=== PATIENT | male | born 1985 | race Caucasian/White ===

== ENCOUNTER 2017-12-28 23:39 | Emergency (ER) | payer OTHER ==
[~2017-12-28] VITALS: Ht 193 cm; Wt 79.4 kg
[~2017-12-28 23:39] MED LIST: ALBU90OI6 INH; AMIT10 PO; AMIT25 PO; AMIT50; AMOX1XR; ASPI81CH; Abilify5 MG PO; Amoxicillin500 MG PO; Cleocin HCl150 MG PO; Cleocin HCl300 MG PO; DIVA500EC PO; DIVA500ER PO; HYDACE5 PO; IBUP800 PO; MIRT15 PO; NAPR500 PO; NAPR550 PO; Norco 5-325 Ta1 EACH PO; PHENO60; PHENO60 PO; PROCODE120 PO; Percocet 5-3251 EACH PO; Prednisone20 MG PO; QUET25 PO; RXNAPNA550 PO; Seroquel50 MG PO; TOPI100 PO; Ultram50 MG PO; Veetids 500500 MG PO; Vistaril50 MG PO; Zofran Odt4 MG SL
[2017-12-29 00:31] LABS: BASOPHILS ABSOLUTE AUTO 0.02 K/mm3 (0.00-0.23); BASOPHILS PERCENT AUTO 0 % (0-2); EOSINOPHILS ABSOLUTE AUTO 0.08 K/mm3 (0.00-0.68); EOSINOPHILS PERCENT AUTO 1 % (0-6); Hemoglobin 14.9 g/dL (13.5-17.5); IMMATURE GRAN ABSOLUTE AUTO 0.01 K/mm3 (0.00-0.10); IMMATURE GRAN PERCENT AUTO 0 % (0-1); LYMPHOCYTES ABSOLUTE AUTO 2.67 K/mm3 (0.84-5.20); LYMPHOCYTES PERCENT AUTO 43 % (21-46); MONOCYTES ABSOLUTE AUTO 0.52 K/mm3 (0.16-1.47); MONOCYTES PERCENT AUTO 8 % (4-13); Mean Corpuscular HGB 30.8 pg (26.0-34.0); Mean Corpuscular HGB Conc 32.4 g/dL (31.5-36.5); Mean Corpuscular Volume 95 fL (80-100); Mean Platelet Volume 10.7 fL (9.1-12.4); NEUTROPHILS ABSOLUTE AUTO 2.89 K/mm3 (1.96-9.15); NEUTROPHILS PERCENT AUTO 47 % (41-73); Platelet Count 212 K/mm3 (150-400); RDW Coefficient Variation 12.9 % (11.7-14.2); RDW Standard Deviation 45.4 fL (35.1-46.3); Red Blood Cell Count 4.84 M/mm3 (4.30-5.90); White Blood Cell Count 6.19 K/mm3 (4.00-11.30)
[2017-12-29 00:39] LABS: Source, Urine Voided
[2017-12-29 00:51] LABS: Bilirubin, Urine Neg (Neg); Blood, Urine Neg (Neg); Glucose Qualitative, Urine Neg (Neg); Ketones, Urine Neg (Neg); Leukocyte Esterase, Urine Neg (Neg); Nitrite, Urine Neg (Neg); Protein, Urine Neg (Neg); Specific Gravity, Urine 1.005 (1.003-1.022); Urobilinogen, Urine NORM (Normal); pH, Urine 6.5 (5.0-8.0)
[2017-12-29 00:52] LABS: Alanine Aminotransfer (ALT/SGP 41 U/L (12-78); Albumin, Blood 3.7 g/dL (3.4-5.0); Albumin/Globulin Ratio 0.9 (0.8-1.8); Alk Phos 53 U/L (50-136); Anion Gap 6 mmol/L (6-16); Aspartate Aminotrans (AST/SGOT 23 U/L (12-37); Bilirubin, Total 0.3 mg/dL (0.1-1.0); Blood Urea Nitrogen 13 mg/dL (8-24); Bun/Creatinine Ratio 16.5 (12.0-20.0); CO2, Blood 28 mmol/L (21-32); Calcium, Blood 8.2 mg/dL (8.5-10.1); Chloride, Blood 105 mmol/L (98-108); Creatinine, Blood 0.79 mg/dL (0.60-1.20); Globulin, Blood 4.1 g/dL (2.2-4.0); Glomerular Filtration Rate >60 (60-); Glucose, Blood 79 mg/dL (70-99); Potassium, Blood 3.8 mmol/L (3.5-5.5); Sodium, Blood 139 mmol/L (136-145); Total Protein, Blood 7.8 g/dL (6.4-8.2)
[2017-12-29 00:56] LABS: Appearance, Urine Clear (Clear); Color, Urine Yellow (P-Yellow)
== END 2017-12-29 02:19 | disposition home or self-care (01) ==
LOC: ER 23:39
PROVIDERS: Physician Assistant
DX: R30.0 Dysuria (principal); R56.9 Unspecified convulsions; Z88.8 Allergy status to other drugs, medicaments and biological substances; Z91.018 Allergy to other foods; Z79.899 Other long term (current) drug therapy; Z87.891 Personal history of nicotine dependence
CPT/HCPCS: 36415; 76770; 76870; 80053; 81000; 81003; 85025; 96374; 99284; J1885

== ENCOUNTER → 2018-09-11 | Outpatient (CLI) | payer OTHER | END | disposition home or self-care (01) | LOC: LAB SHORT 16:24 → LAB EV 16:24 | DX: J02.9 Acute pharyngitis, unspecified (principal) | CPT/HCPCS: 87070 ==

== ENCOUNTER 2019-05-15 01:10 | Emergency (ER) | payer OTHER | END 2019-05-15 02:30 | disposition left against medical advice (07) | LOC: ER 01:10 | DX: Z53.21 Procedure and treatment not carried out due to patient leaving prior to being seen by health care provider (principal); M54.9 Dorsalgia, unspecified ==

== ENCOUNTER 2019-08-16 00:59 | Emergency (ER) | payer OTHER ==
[~2019-08-16] VITALS: Ht 190.5 cm; Wt 83.9 kg
[2019-08-16] MEDS ORDERED: ASPI81CH PO (01:15)
[2019-08-16] MEDS ORDERED: Daily Multiple1 EACH PO (01:15)
[2019-08-16] MEDS ORDERED: HYDPAM25 PO (01:16)
[2019-08-16] MEDS ORDERED: ACET500 PO (01:17)
[2019-08-16] MEDS ORDERED: IBUPROFEN200 MG PO (01:18)
[2019-08-16 01:50] LABS: Calcium, Ionized (POC) 1.17 mmol/L (1.10-1.46); Chloride (POC) 106 mmol/L (98-108); Creatinine (POC) 0.9 mg/dL (0.8-1.3); Glucose (ISTAT POC) 90 mg/dL (70-99); Hemoglobin (POC) 16.3 g/dL (13.5-17.5); Potassium (POC) 3.6 mmol/L (3.5-5.5); Sodium (POC) 140 mmol/L (135-148); Total CO2 (POC) 25 mmol/L (21-32)
[2019-08-16] MEDS ORDERED: BACITRAYCIN PLU28 GM TOP (02:05)
== END 2019-08-16 02:22 | disposition home or self-care (01) ==
LOC: ER 00:59
PROVIDERS: Emergency Medicine
DX: L73.9 Follicular disorder, unspecified (principal); R05 Cough; R11.0 Nausea; J45.909 Unspecified asthma, uncomplicated; F17.200 Nicotine dependence, unspecified, uncomplicated; Z88.8 Allergy status to other drugs, medicaments and biological substances; Z91.018 Allergy to other foods; Z91.048 Other nonmedicinal substance allergy status; Z79.899 Other long term (current) drug therapy; Z79.82 Long term (current) use of aspirin
CPT/HCPCS: 71046; 80047; 85014; 99283-25

== ENCOUNTER → 2021-05-17 | Outpatient (CLI) | payer OTHER ==
[~2021-05-17] MED LIST changes: +ACET500 PO; +ASPI81CH PO; +BACITRAYCIN PLU28 GM TOP; +Daily Multiple1 EACH PO; +HYDPAM25 PO; +IBUPROFEN200 MG PO
== END | disposition home or self-care (01) ==
LOC: LAB 13:15 → LAB SHORT 13:15
DX: J02.9 Acute pharyngitis, unspecified (principal)
CPT/HCPCS: 87081

== ENCOUNTER → 2021-07-31 | Outpatient (CLI) | payer OTHER | LOC: LAB SHORT 19:32 → LAB 19:32 | DX: L02.214 Cutaneous abscess of groin (principal); L08.9 Local infection of the skin and subcutaneous tissue, unspecified; Z91.018 Allergy to other foods; Z91.048 Other nonmedicinal substance allergy status | CPT/HCPCS: 87070; 87075; 87076; 87205 ==

== ENCOUNTER 2021-09-08 10:27 | Emergency (ER) | payer OTHER ==
[~2021-09-08] VITALS: Ht 188 cm; Wt 77.6 kg
[2021-09-08] MEDS ORDERED: PRED20 PO (11:52)
[2021-09-08] MEDS ORDERED: ALBUTEROL1.25 MG/3 INH (11:52)
== END 2021-09-08 12:12 | disposition home or self-care (01) ==
LOC: ER 10:27
DX: R04.0 Epistaxis (principal); J45.901 Unspecified asthma with (acute) exacerbation; G40.909 Epilepsy, unspecified, not intractable, without status epilepticus; Z91.018 Allergy to other foods; Z88.8 Allergy status to other drugs, medicaments and biological substances; Z79.82 Long term (current) use of aspirin; Z79.899 Other long term (current) drug therapy
CPT/HCPCS: 30903; 71045; 94640; 99283-25; A9270; J7512

== ENCOUNTER 2022-04-10 14:18 | Emergency (ER) | payer OTHER ==
[~2022-04-10] VITALS: Ht 193 cm; Wt 86.6 kg
[~2022-04-10 14:18] MED LIST changes: +ALBUTEROL1.25 MG/3 INH; +PRED20 PO
== END 2022-04-10 16:21 | disposition home or self-care (01) ==
LOC: ER 14:18
DX: R20.0 Anesthesia of skin (principal); J45.909 Unspecified asthma, uncomplicated; Z79.899 Other long term (current) drug therapy; Z79.82 Long term (current) use of aspirin; Z88.8 Allergy status to other drugs, medicaments and biological substances; Z91.018 Allergy to other foods; Z87.891 Personal history of nicotine dependence
CPT/HCPCS: 99283

== ENCOUNTER 2023-12-09 18:29 | Emergency (ER) | payer OTHER ==
[~2023-12-09] VITALS: Ht 190.5 cm; Wt 84.8 kg
[2023-12-09 18:56] VITALS: BP 117/87
== END 2023-12-09 21:10 | disposition home or self-care (01) ==
LOC: ER 18:29
DX: M25.532 Pain in left wrist (principal); W01.0XXA Fall on same level from slipping, tripping and stumbling without subsequent striking against object, initial encounter; J45.909 Unspecified asthma, uncomplicated; G40.909 Epilepsy, unspecified, not intractable, without status epilepticus; Z87.891 Personal history of nicotine dependence; Z88.8 Allergy status to other drugs, medicaments and biological substances; Z91.018 Allergy to other foods; Z79.899 Other long term (current) drug therapy; Z79.82 Long term (current) use of aspirin
CPT/HCPCS: 73110; 99283-25

== ENCOUNTER 2024-04-26 14:51 | Emergency (ER) | payer OTHER ==
[~2024-04-26] VITALS: Ht 188 cm; Wt 90.7 kg
[2024-04-26] MEDS ORDERED: Hydroxyzine HCl50 MG (15:23)
[2024-04-26] MEDS ORDERED: ARIPIPRAZOLE30 MG PO (15:23)
[2024-04-26] MEDS ORDERED: DEPAKOTE ER500 M2 PO (15:24)
[2024-04-26] MEDS ORDERED: PHENO60 PO (15:25)
[2024-04-26 15:38] LABS: BASOPHILS ABSOLUTE AUTO 0.02 K/mm3 (0.00-0.23); BASOPHILS PERCENT AUTO 0 % (0-2); EOSINOPHILS ABSOLUTE AUTO 0.04 K/mm3 (0.00-0.68); EOSINOPHILS PERCENT AUTO 1 % (0-6); Hematocrit 49.3 % (37.0-53.0); Hemoglobin 16.4 g/dL (13.5-17.5); IMMATURE GRAN ABSOLUTE AUTO 0.01 K/mm3 (0.00-0.10); IMMATURE GRAN PERCENT AUTO 0 % (0-1); LYMPHOCYTES ABSOLUTE AUTO 1.44 K/mm3 (0.84-5.20); LYMPHOCYTES PERCENT AUTO 29 % (21-46); MONOCYTES PERCENT AUTO 6 % (4-13); Mean Corpuscular HGB 31.8 pg (26.0-34.0); Mean Corpuscular HGB Conc 33.3 g/dL (31.5-36.5); Mean Corpuscular Volume 96 fL (80-100); Mean Platelet Volume 10.4 fL (9.1-12.4); NEUTROPHILS ABSOLUTE AUTO 3.18 K/mm3 (1.96-9.15); NEUTROPHILS PERCENT AUTO 64 % (41-73); Platelet Count 237 K/mm3 (150-400); RDW Coefficient Variation 13.3 % (11.7-14.2); RDW Standard Deviation 47.2 fL (35.1-46.3); Red Blood Cell Count 5.16 M/mm3 (4.30-5.90); White Blood Cell Count 4.99 K/mm3 (4.00-11.30)
[2024-04-26 15:59] LABS: Ethanol (Alcohol), Blood, Med <3 mg/dL; Salicylate <1.7 mg/dL (2.8-20.0)
[2024-04-26 16:02] LABS: Alanine Aminotransfer (ALT/SGP 28 U/L (12-78); Albumin/Globulin Ratio 1.1 (0.8-1.8); Alk Phos 43 U/L (50-136); Anion Gap 10 mmol/L (3-11); Aspartate Aminotrans (AST/SGOT 19 U/L (12-37); Bilirubin, Total 0.4 mg/dL (0.1-1.0); Blood Urea Nitrogen 15 mg/dL (8-24); Bun/Creatinine Ratio 15.4 (12.0-20.0); CO2, Blood 28 mmol/L (21-32); Calcium, Blood 8.7 mg/dL (8.5-10.1); Chloride, Blood 109 mmol/L (98-108); Creatinine, Blood 0.97 mg/dL (0.60-1.20); Globulin, Blood 3.7 g/dL (2.2-4.0); Glomerular Filtration Rate 101 (60-); Glucose, Blood 97 mg/dL (70-99); Sodium, Blood 143 mmol/L (136-145); Total Protein, Blood 7.7 g/dL (6.4-8.2)
[2024-04-26 16:12] LABS: Acetaminophen, Random <2.0 ug/mL (10.0-30.0)
[2024-04-26 19:20] LABS: Source, Urine Clean Catch
[2024-04-26 19:23] LABS: Appearance, Urine Cloudy (Clear); Bilirubin, Urine Neg (Neg); Blood, Urine Neg (Neg); Color, Urine Yellow (P-Yellow); Glucose Qualitative, Urine Neg (Neg); Ketones, Urine 2+ (Neg); Leukocyte Esterase, Urine Neg (Neg); Nitrite, Urine Neg (Neg); Protein, Urine Neg (Neg); Urobilinogen, Urine NORM (Normal)
[2024-04-26 19:31] LABS: Amorphous Light (0-Heavy); Bacteria Rare /hpf; Red Blood Cells, Urine 0-2 /hpf (0-2); Squamous Epithelial Cells Not Seen /hpf (Few); White Blood Cells, Urine 0-2 /hpf (0-5)
[2024-04-26] MEDS ORDERED: DOXYCYCLINE HY100 M1 PO (19:36)
[2024-04-26 19:41] LABS: U Amphetamine Screen Not Detected; U Barbituate Screen DETECTED; U Benzodiazapine Screen Not Detected; U Buprenorphine Screen Not Detected; U Cannabinoids Screen Not Detected; U Cocaine Screen Not Detected; U Methadone Screen Not Detected; U Methamphetamine Screen Not Detected; U Opiates Screen Not Detected; U Oxycodone Screen Not Detected; U Phencyclidine Screen Not Detected
[2024-04-26] MEDS ORDERED: Topiramate 100 MG Tab PO SCH (21:00)
[2024-04-26] MEDS ORDERED: Divalproex Sodium 500 MG TABCR PO SCH (21:00)
[2024-04-26] MEDS ORDERED: HyDROXyzine HCl 25 MG Tab PO SCH (21:00)
[2024-04-26] MEDS ORDERED: Doxycycline Hyclate 100 MG TAB PO SCH (21:00)
[2024-04-26] MEDS ORDERED: ARIPiprazole 10 MG Tab PO SCH (21:00)
[2024-04-26] MEDS ORDERED: PHENobarbital 64.8 MG Tab PO SCH (21:00)
[2024-04-27] MEDS ORDERED: Topiramate 100 MG Tab PO SCH (06:00)
[2024-04-27 08:47] VITALS: BP 109/82
[2024-04-27] MEDS ORDERED: PHENO60 PO (16:04)
== END 2024-04-27 08:49 | disposition other institution (70) ==
LOC: ER 14:51
PROVIDERS: Physician Assistant; Student in an Organized Health Care Education/Training Program
DX: R45.851 Suicidal ideations (principal); F31.9 Bipolar disorder, unspecified; G40.909 Epilepsy, unspecified, not intractable, without status epilepticus; J45.909 Unspecified asthma, uncomplicated; Z91.018 Allergy to other foods; Z91.048 Other nonmedicinal substance allergy status; Z79.899 Other long term (current) drug therapy; Z87.891 Personal history of nicotine dependence
CPT/HCPCS: 80053; 80184; 81001; 85025; 99285; A9270; G0480

== ENCOUNTER 2024-04-26 18:53 | Inpatient (IN) | payer OTHER ==
[~2024-04-26 18:53] MED LIST changes: +ARIPIPRAZOLE30 MG PO; +DEPAKOTE ER500 M2 PO; +Hydroxyzine HCl50 MG
[2024-04-26] MEDS ORDERED: DOXYCYCLINE HY100 M1 PO (19:36)
--- NOTE | 2024-04-26 20:12 | NUR ---
pt transfer via wheelchair to medical floor rm [id number]. warm hand off to nurse jolly
[2024-04-26] MEDS ORDERED: Haloperidol 5 MG Tab PO PRN (22:10)
[2024-04-26] MEDS ORDERED: LORazepam 2 MG Tab PO PRN (22:10)
[2024-04-26] MEDS ORDERED: DiphenhydrAMINE HCl 50 MG Cap PO PRN (22:10)
[2024-04-26] MEDS ORDERED: OLANZapine 10 MG Vial IM PRN (22:10)
--- NOTE | 2024-04-27 08:55 | NUR ---
PT ADMIT PT ARRIVED VIA [facility] TRANSPORT CALL TO HOSPITALIST CONSULT DR. GOMES FOR PHENOBARBITAL AND ABX RX.
[2024-04-27] MEDS ORDERED: Divalproex Sodium 250 MG TABLET.DR PO SCH (09:00)
[2024-04-27 09:41] VITALS: BP 111/84
--- NOTE | 2024-04-27 11:44 | NUR ---
MEDICATION CLAIRIFICATION PT REPORTS TAKING 1000MG OF DEPAKOTE AT [address] RAMÍREZ CURRENT ORDERS FOR 250MG q12 @0900/2100
[2024-04-27] MEDS ORDERED: HyDROXyzine HCl 25 MG Tab PO PRN (12:00)
--- NOTE | 2024-04-27 13:50 | NUR ---
EKG COMPLETE EKG COMPLETED ORDERED, CALL TO DR RAMÍREZ TO INFORM OF COMPLETION.
[2024-04-27] MEDS ORDERED: PHENO60 PO (16:04)
[2024-04-27] MEDS ORDERED: Albuterol 2.5 MG/3 ML VIAL INH PRN (16:15)
[2024-04-27] MEDS ORDERED: Acetaminophen 500 MG Tab PO PRN (17:00)
[2024-04-27] MEDS ORDERED: PHENobarbital 64.8 MG Tab PO SCH (21:00)
[2024-04-27] MEDS ORDERED: Doxycycline Hyclate 100 MG TAB PO SCH (21:00)
[2024-04-27] MEDS ORDERED: Divalproex Sodium 500 MG TABCR PO SCH (21:00)
[2024-04-27 22:36] VITALS: BP 103/81
--- NOTE | 2024-04-28 01:35 | NUR ---
Patient unable to sleep one hour after HS medications given. OOB asking for something elso to help him sleep. 50mg of PRN Vistaril given per order. Currently in TV room still unable to sleep. Watching movie with [facility]. Will continue close monitoring and encouraging patient to try to sleep. Mood good pleasant. Explained there is a scoring system for any further medications tonight.
--- NOTE | 2024-04-28 04:56 | NUR ---
Patient had very poor sleep overnight. Did sleep for about 2 hours between 2-4 AM. He is also suffering from a strong dry cough that woke him from sleep this morning. Patient is pleasant and cooperative with care. Very conversant with staff. Currently OOB reading a book in the sensory room. No SI,HI,AH/VH. will continue close monitoring.
[2024-04-28 08:27] VITALS: BP 108/80
[2024-04-28] MEDS ORDERED: Topiramate 100 MG Tab PO SCH (09:00)
[2024-04-28] MEDS ORDERED: PHENobarbital 64.8 MG Tab PO SCH (09:00)
[2024-04-28] MEDS ORDERED: ARIPiprazole 10 MG Tab PO SCH (09:00)
--- NOTE | 2024-04-28 16:10 | NUR ---
Due to pt advising SW on 04/27/24 that he would like to live in an Adult Living Home, SW attempted to contact [facility] for possible availability (i.e. [facility] and [facility]). All [facility] that SW contacted advised that no placement was currently available and would not be able to advise of a tat of when space would be. At 0950 SW contacted pt insurance [employer] in order to review if transportation could be utilized for when pt discharges [facility]. Due to other concerns, SW was not able to gather transportation question from insurance. SW met with pt approximately 1030am. Pt advised that in the event his insurance is not able to provide transportation assistance, he will attempt to contact his brother in law.
--- NOTE | 2024-04-28 17:42 | NUR ---
SHIFT SUMMARY PT AxOx4. PLEASANT AND COOPERATIVE WITH CARE. PT HAS PARTICIPATED IN GROUPS TODAY, ENGAGED WITH PEERS, AND MINGLED APPROPRIATELY. PT REPORTED DIARRHEA THIS AM, WHICH DID RESOLVE BY THE EVENING. PT REPORTED HAVING SUICIDAL THOUGHTS T/O THIS SHIFT, BUT DENIES INTENT AND PLANS AT THIS TIME. DENIES AVD THIS SHIFT. MEDS CHANGED BY PROVIDER TO BE STARTED THIS EVENING. PT IS CURRENTLY STANDING IN HALLS CHATTING WITH FELLOW PATIENT. HE APPEARS RELAXED AND IS SMILING. HE DENIED ANY NEEDS WHEN ASKED. EXPECTED DISCHARGE EITHER TO RETIREMENT OR ADULT FOSTER HOME.
[2024-04-28 20:11] VITALS: BP 134/89
[2024-04-28] MEDS ORDERED: LamoTRIgine 25 MG Tab PO SCH (21:00)
[2024-04-28] MEDS ORDERED: OLANZapine 5 MG Tab PO ONE (21:55)
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
--- NOTE | 2024-04-28 23:35 | NUR ---
EKG completed on 04/27. will ask day RN to check with Dr. Ji to see if 2nd one is needed.
--- NOTE | 2024-04-29 01:29 | NUR ---
Patient continues to be unable to sleep. Call placed to MD to inform. No new orders at this time. Continue to monitor until AM per Dr. Rios.
--- NOTE | 2024-04-29 04:47 | NUR ---
Patient is A&OX4, very pleasant and cooperative with care. OOB wandering halls until approximately 0415 when this RN finally convinced him to go to bed and try to sleep. Patient check at 0435 revealed he had fallen asleep. Patient stated no SI, HI, AH or VH. Mood was Elevated throughout the evening and senior pastor hours and he was unable to sit or stand still. Will continue close monitoring
[2024-04-29 08:39] VITALS: BP 114/76
--- NOTE | 2024-04-29 09:45 | NUR ---
PT DENIES SI, HI, A/V HALLUCINATIONS. CALM, COOPERATIVE, SOCIAL SEEN ON UNIT EATING BREAKFAST WIHT PEERS. ATTENDING GROUP, PARTICIPATING IN GAMES, HAVING CONVERSATION WITH STAFF. NO ISSUES AT THIS TIME.
--- NOTE | 2024-04-29 12:07 | NUR ---
TESSY contacted Roxann (i.e. sister of pt) in order to confirm if pt was allowed to live with family again, due to pt advising in his intake with SW that he was kicked out of his home, however, also advising that he spoke with his family 04/28/24 and that they his family stated he was allowed to come back. Tessy spoke with Roxann from 11:55am-12:23pm. Roxann confirmed that pt is allowed to live to live at home, everyone wants him home, and that she will be able to assist in his transportation for discharge on 04/30/24. Roxann stated that she can be available at 1pm for pickup.
[2024-04-29 12:57] LABS: Albumin, Blood 4.2 g/dL (3.4-5.0); Bilirubin, Direct 0.1 mg/dL (0.0-0.3); Bilirubin, Indirect 0.4 mg/dL (0.1-0.7); Bilirubin, Total 0.5 mg/dL (0.1-1.0); Bun/Creatinine Ratio 15.3 (12.0-20.0); Calcium, Blood 9.5 mg/dL (8.5-10.1); Creatinine, Blood 0.85 mg/dL (0.60-1.20); Phosphorus, Blood 2.3 mg/dL (2.5-4.9); Potassium, Blood 4.2 mmol/L (3.5-5.5); Total Protein, Blood 8.2 g/dL (6.4-8.2)
[2024-04-29 12:58] LABS: Valproic Acid 60.6 ug/mL (50.0-100.0)
[2024-04-29] MEDS ORDERED: Melatonin 3 MG Tab PO PRN (14:10)
--- NOTE | 2024-04-29 14:44 | NUR ---
Pt calm, cooperative, seen on unit socializing with amaris using positive coping skills, eating snack and playing games with peers. Pt has mild flat affect. Pt is medication compliant, meds are well tolerated. Pt resting in bed, 3x rise and fall of chest observed. NO issues at this time.
--- NOTE | 2024-04-29 14:51 | NUR ---
Pt resting in bed 3x rise and fall of chest observed. No issues at this time.
[2024-04-29] MEDS ORDERED: Tamsulosin HCl 0.4 MG Cap PO SCH (15:00)
[2024-04-29] MEDS ORDERED: Potassium Phos/Sodium Phos 250 MG PACK PO ONE (15:40)
--- NOTE | 2024-04-29 16:51 | NUR ---
PT CALM, COOPERATIVE, SOCIALIZING WITH STAFF AND CATHIE PLAYING GAMES, EATING SNACK, PARTICIPATING IN GROUP. NO ISSUES AT THIS TIME.
--- NOTE | 2024-04-29 16:57 | NUR ---
PT CALM, COOPERATIVE, MEDICATION COMPLIANT, MEDICATIONS WELL TOLERATED. NEW MEDICATOIN FIRST DOSE ADMINISTERED.
[2024-04-29] MEDS ORDERED: Melatonin 5 MG Tablet PO SCH (18:00)
[2024-04-29 20:29] VITALS: BP 103/77; BP 131/89
[2024-04-29] MEDS ORDERED: OLANZapine 5 MG Tab PO SCH (21:00)
[2024-04-29] MEDS ORDERED: TraZODone HCl 50 MG Tab PO SCH (21:00)
--- NOTE | 2024-04-30 03:12 | NUR ---
Patient to bed at 2400 then back up at 0130 with c/omild generalized aches and insomnia. Gave tylenol and PRN 3mg melatonin and chamomile tea. He woke again at 0300 complaiining that his arms were moving in his sleep and wanted to know "what that is". Large cup tea given again, and patient agreed to try again to go to sleep. will continue close monitoring.
--- NOTE | 2024-04-30 03:22 | NUR ---
PATIENT C/O NIGHT TERRORS THE REASON HE THINKS HE CANNOT GO TO OR STAY ASLEEP.
--- NOTE | 2024-04-30 05:03 | NUR ---
Patient again got very little overall sleep last night. He was up hourly after going to bed at 0030. Each time with vague complaints of generalized discomfort or arms and shoulders "flapping" (much like a bird). Both Scheduled dose of melatonin at HS as well as PRN dose were given without much response until around 0400 when patient finally fell asleep. PATIENT DISCUSSED A LONG HISTORY OF FREQUENT NIGHTMARES WHICH HAVE MADE IT DIFFICULT FOR HIM TO SLEEP FOR SEVERAL YEARS. HE WAS ENCOURAGED TO SPEAK WITH MD ABOUT THIS IN THE MORNING. Denied SI,HI, AH or VH to this RN.
--- NOTE | 2024-04-30 08:29 | NUR ---
Pt resting in bed, 3x rise and fall of chest observed. No issues at this time.
[2024-04-30 09:40] VITALS: BP 114/81
[2024-04-30 10:12] LABS: Albumin, Blood 3.6 g/dL (3.4-5.0); Anion Gap 8 mmol/L (3-11); Blood Urea Nitrogen 13 mg/dL (8-24); Bun/Creatinine Ratio 15.5 (12.0-20.0); CO2, Blood 30 mmol/L (21-32); Calcium, Blood 9.4 mg/dL (8.5-10.1); Chloride, Blood 109 mmol/L (98-108); Creatinine, Blood 0.84 mg/dL (0.60-1.20); Glomerular Filtration Rate 113 (60-); Glucose, Blood 96 mg/dL (70-99); Potassium, Blood 4.7 mmol/L (3.5-5.5); Sodium, Blood 142 mmol/L (136-145)
[2024-04-30] MEDS ORDERED: Ventolin5 MG/1 ML INH (11:28)
[2024-04-30] MEDS ORDERED: LAMO25 PO (11:30)
[2024-04-30] MEDS ORDERED: MELATONIN5 M1 PO (11:30)
[2024-04-30] MEDS ORDERED: OLAN5 PO (11:31)
[2024-04-30] MEDS ORDERED: TAMS.4ER PO (11:34)
--- NOTE | 2024-04-30 13:06 | NUR ---
PT SIGNED OFF ON BELONGINGS: DRESSED,WALKED OUT WITH RN TO HIS RIDE THAT WAS HERE TO PICK HIM UP: PT WAS IN GOOD SPIRITS
== END 2024-04-30 12:53 | disposition home or self-care (01) | DRG 885 ==
LOC: BHU 18:53
PROVIDERS: Internal Medicine; ADMIT Student in an Organized Health Care Education/Training Program
DX: F31.77 Bipolar disorder, in partial remission, most recent episode mixed (principal); R45.851 Suicidal ideations; Z59.00 Homelessness unspecified; E83.39 Other disorders of phosphorus metabolism; N20.0 Calculus of kidney; G40.909 Epilepsy, unspecified, not intractable, without status epilepticus; L73.0 Acne keloid; J45.909 Unspecified asthma, uncomplicated; Z56.0 Unemployment, unspecified; F41.9 Anxiety disorder, unspecified
CPT/HCPCS: 36415; 80053; 80069; 80164; 82140; 82248; 84100; 93005; 93010; A9270

== ENCOUNTER 2024-05-12 17:35 | Observation (INO) | payer OTHER ==
[~2024-05-12] VITALS: Ht 190.5 cm; Wt 77.1 kg
[~2024-05-12 17:35] MED LIST changes: +DOXYCYCLINE HY100 M1 PO; +LAMO25 PO; +MELATONIN5 M1 PO; +OLAN5 PO; +TAMS.4ER PO; +Ventolin5 MG/1 ML INH
[2024-05-12 18:15] LABS: BASOPHILS ABSOLUTE AUTO 0.01 K/mm3 (0.00-0.23); BASOPHILS PERCENT AUTO 0 % (0-2); EOSINOPHILS PERCENT AUTO 0 % (0-6); Hematocrit 46.7 % (37.0-53.0); Hemoglobin 15.1 g/dL (13.5-17.5); IMMATURE GRAN ABSOLUTE AUTO 0.01 K/mm3 (0.00-0.10); IMMATURE GRAN PERCENT AUTO 0 % (0-1); LYMPHOCYTES ABSOLUTE AUTO 0.77 K/mm3 (0.84-5.20); LYMPHOCYTES PERCENT AUTO 16 % (21-46); MONOCYTES PERCENT AUTO 4 % (4-13); Mean Corpuscular HGB 31.6 pg (26.0-34.0); Mean Corpuscular HGB Conc 32.3 g/dL (31.5-36.5); Mean Corpuscular Volume 98 fL (80-100); Mean Platelet Volume 10.8 fL (9.1-12.4); NEUTROPHILS ABSOLUTE AUTO 3.78 K/mm3 (1.96-9.15); NEUTROPHILS PERCENT AUTO 79 % (41-73); Platelet Count 213 K/mm3 (150-400); RDW Standard Deviation 47.3 fL (35.1-46.3); Red Blood Cell Count 4.78 M/mm3 (4.30-5.90); White Blood Cell Count 4.77 K/mm3 (4.00-11.30)
[2024-05-12 18:32] LABS: Ethanol (Alcohol), Blood, Med <3 mg/dL; Salicylate <1.7 mg/dL (2.8-20.0)
[2024-05-12 18:33] LABS: Acetaminophen, Random <2.0 ug/mL (10.0-30.0); Alanine Aminotransfer (ALT/SGP 21 U/L (12-78); Albumin, Blood 3.6 g/dL (3.4-5.0); Albumin/Globulin Ratio 1.1 (0.8-1.8); Alk Phos 39 U/L (50-136); Anion Gap 20 mmol/L (3-11); Aspartate Aminotrans (AST/SGOT 18 U/L (12-37); Bilirubin, Total 0.5 mg/dL (0.1-1.0); Blood Urea Nitrogen 17 mg/dL (8-24); Bun/Creatinine Ratio 14.2 (12.0-20.0); CO2, Blood 15 mmol/L (21-32); Calcium, Blood 8.3 mg/dL (8.5-10.1); Chloride, Blood 105 mmol/L (98-108); Globulin, Blood 3.4 g/dL (2.2-4.0); Glomerular Filtration Rate 78 (60-); Glucose, Blood 248 mg/dL (70-99); Potassium, Blood 3.6 mmol/L (3.5-5.5); Sodium, Blood 136 mmol/L (136-145)
[2024-05-12] MEDS ORDERED: Acetaminophen 500 MG Tab PO ONE (20:20)
[2024-05-12 20:40] LABS: Source, Urine Clean Catch
[2024-05-12 20:51] LABS: Appearance, Urine Hazy (Clear); Bilirubin, Urine Neg (Neg); Blood, Urine 1+ (Neg); Color, Urine Yellow (P-Yellow); Glucose Qualitative, Urine 2+ (Neg); Ketones, Urine 2+ (Neg); Leukocyte Esterase, Urine Neg (Neg); Nitrite, Urine Neg (Neg); Protein, Urine 2+ (Neg); Specific Gravity, Urine 1.025 (1.003-1.022); Urobilinogen, Urine NORM (Normal)
[2024-05-12] MEDS ORDERED: OLANZapine 5 MG Tab PO SCH (21:00)
[2024-05-12] MEDS ORDERED: PHENobarbital 64.8 MG Tab PO SCH (21:00)
[2024-05-12] MEDS ORDERED: Divalproex Sodium 500 MG TABCR PO SCH (21:00)
[2024-05-12] MEDS ORDERED: Melatonin 5 MG Tablet PO SCH (21:00)
[2024-05-12] MEDS ORDERED: LamoTRIgine 25 MG Tab PO SCH (21:00)
[2024-05-12 21:04] LABS: Bacteria Few /hpf; Granular Casts 0-2 /lpf (0); Red Blood Cells, Urine 0-2 /hpf (0-2); Squamous Epithelial Cells Few /hpf (Few); White Blood Cells, Urine 0-2 /hpf (0-5)
[2024-05-12 21:27] LABS: U Amphetamine Screen Not Detected; U Barbituate Screen DETECTED; U Benzodiazapine Screen Not Detected; U Buprenorphine Screen Not Detected; U Cannabinoids Screen Not Detected; U Cocaine Screen Not Detected; U Methadone Screen Not Detected; U Methamphetamine Screen Not Detected; U Opiates Screen Not Detected; U Oxycodone Screen Not Detected; U Phencyclidine Screen Not Detected
[2024-05-13 16:24] VITALS: BP 105/66
[2024-05-13] MEDS ORDERED: LORazepam 2 MG Tab PO PRN (17:00)
[2024-05-13] MEDS ORDERED: Venlafaxine HCl 25 MG Tab PO SCH (21:00)
[2024-05-13] MEDS ORDERED: HydrOXYzine Pamoate 50 MG Cap PO SCH (21:00)
[2024-05-14] MEDS ORDERED: PHENobarbital 64.8 MG Tab PO SCH (09:00)
== END 2024-05-13 21:52 | disposition other institution (70) ==
LOC: ER 17:35 → EOR 17:36
PROVIDERS: Physician Assistant; ADMIT Emergency Medicine
DX: F31.81 Bipolar II disorder (principal); R45.851 Suicidal ideations; G40.909 Epilepsy, unspecified, not intractable, without status epilepticus; J45.909 Unspecified asthma, uncomplicated; F41.9 Anxiety disorder, unspecified; Z87.891 Personal history of nicotine dependence; Z88.8 Allergy status to other drugs, medicaments and biological substances; Z91.011 Allergy to milk products; Z91.018 Allergy to other foods
CPT/HCPCS: 36415; 80053; 81001; 85025; 93005; 93010; 99285-25; A9270; G0378; G0480

== ENCOUNTER 2024-05-13 18:35 | Inpatient (IN) | payer OTHER ==
[~2024-05-13] VITALS: Wt 76.7 kg
[2024-05-13] MEDS ORDERED: QUEtiapine Fumarate 25 MG Tab PO PRN ×2 (19:05→19:45)
[2024-05-13] MEDS ORDERED: LORazepam 2 MG Tab PO PRN ×2 (19:05→19:45)
[2024-05-13 21:37] VITALS: BP 99/73
--- NOTE | 2024-05-14 01:03 | NUR ---
NEW ADMIT: Kierra IS ADMITTED TODAY HE WAS FEELING SI. APPARENTLY KIERRA LIVES WITH HIS PARENTS AND OTHER FAMILY MEMBERS. HE TELLS ME THEY CAUSED HIM TO BECOME QUITE ANXIOUS, DEPRESSED AND AGITATED. HE FELT VERY SUICIAL WITH A PLAN, SO PRECEEDED TO WALK TO THE ER FOR TREATMENT. KIERRA IS WELL KNOWN TO OUR STAFF. HE WAS COMPLIANT WITH CARE AND MEDICATIONS. HE DENIES ANY PAIN OR DISCOMFORTS. hE IS VERY CHATTY WITH STAFF AND OTHER PATIENTS. HE DID AGREE TO GO TO BED AND TRY AND SLEEP AROUND MIDNIGHT. PATIENT ACTIVELY SLEEPING AROUND 1230. NO NOTED BEHAVIORS
--- NOTE | 2024-05-14 05:39 | NUR ---
PATIENT SLEPT WELL THROUGHOUT THE NIGHT AFTER PRN ATIVAN WAS GIVEN FOR MODERATE ANXIETY AND RESTLESSNESS. HE HAD NO NOTED BEHAVIORS OR ISSUES
[2024-05-14 08:29] VITALS: BP 107/72
--- NOTE | 2024-05-14 09:48 | NUR ---
Tessy attempted to contact Asael Jimenez at regarding ACT services. Tessy left a vm at 0817 approximately.
--- NOTE | 2024-05-14 09:51 | NUR ---
DISCHARGE SERVICS::::::::::::::::::::::::::::::: Tessy spoke with Adrienne (i.e. [employer] worker) in order to schedule therapy services. Pt will meet with Justin Harrison at 1100 on 04/20/2024. Tessy received a callback from Katelin with [facility]. Katelin scheduled pt for meds with [facility] on 04/19/2024 at 1400pm
[2024-05-14] MEDS ORDERED: Albuterol 2.5 MG/3 ML VIAL INH PRN (10:05)
--- NOTE | 2024-05-14 10:06 | NUR ---
PT ATE BREAKFAST, GIVEN EXTRA COFFEE PER REQUEST. PT COOPERATIVE AND ENGAGING WITH STAFF AND OTHER PT. PT SMILING AND LAUGHING AT TIMES, REPEAT CBG REQUESTED BY DR. GAMBOA AND DR. CALIX, PT HAD A PREVIOUS RECORDED CBG OF 248, THIS WAS DONE AND 114, REPORTED TO PROVIDERS. PT MET WITH SUPPLY AIDE AND AGREES TO KEEP A WORRY JOURNAL, HE IS GOING TO RECORD THE WORRY AND WORK ON TURNING THIS INTO A POSITIVE THOUGHT USING HANDOUTS PROVIDED. PT IS GIVEN SAFETY PEN FOR THIS ACTIVITY. DENIES ANY FURTHER NEEDS AT THIS TIME.
--- NOTE | 2024-05-14 16:13 | NUR ---
Bhupinder attempted to contact Roxann (i.e. sister) at 1613pm in order to schedule a family meeting with pt, Roxann and bhupinder. Bhupinder will attempt to call Roxann at another time.
--- NOTE | 2024-05-14 16:29 | NUR ---
PT REPORTS HE IS STILL FEELING SUICIDAL, EARLIER PT REPORTED NO PLAN, THIS CHANGED THIS AFTERNOON PT WAS LOOKING FOR A PLACE TO MAKE LIGATURE AND HANG HIMSELF, INCREASED OBSERVATION TO 1:1 AT THIS TIME, PACKER OPERATOR AUTOMATIC NOTIFYING PROVIDER
[2024-05-14 19:52] VITALS: BP 120/80
[2024-05-14] MEDS ORDERED: Melatonin 5 MG Tablet PO SCH (21:00)
[2024-05-14] MEDS ORDERED: Divalproex Sodium 500 MG TABCR PO SCH (21:00)
[2024-05-14] MEDS ORDERED: PHENobarbital 64.8 MG Tab PO SCH (21:00)
[2024-05-14] MEDS ORDERED: OLANZapine 5 MG Tab PO SCH (21:00)
[2024-05-14] MEDS ORDERED: LamoTRIgine 25 MG Tab PO SCH (21:00)
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
--- NOTE | 2024-05-15 06:11 | NUR ---
PATIENT HAD A RESTFUL NIGHT, NO NOTED ISSUES OR BEHAVIORS. HE REMAINS ON A 1:1 FOR SI SAFETY.
[2024-05-15 08:31] VITALS: BP 103/75
[2024-05-15] MEDS ORDERED: Topiramate 100 MG Tab PO SCH (09:00)
[2024-05-15] MEDS ORDERED: PHENobarbital 64.8 MG Tab PO SCH (09:00)
[2024-05-15] MEDS ORDERED: Tamsulosin HCl 0.4 MG Cap PO SCH (09:00)
--- NOTE | 2024-05-15 10:08 | NUR ---
PT AWAKE AT 0752, INDEPENDENTLY WENT TO GET BREAKFAST WITHOUT MUCH ENCOURAGEMENT. PT DOES ENDORSE CONTINUED SUICIDAL THOUGHTS, BUT DOESN'T SHARE ANY SPECIFIC PLAN OR INTENT. PT MOSTLY AVOIDING EYE CONTACT THIS MORNING, SAD AFFECT AND NOT SMILING. PT HAS WORKED ON A PUZZLE WITH [facility] FOR MOST OF THE MORNING, WILL CONTINUE 1:1 MONITORING AT THIS TIME.
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
--- NOTE | 2024-05-15 16:48 | NUR ---
HAVE MAINTAINED 1:1 OBSERVATION, PT HAS BEEN ENGAGED IN CONVERSATION, PT SMILING AND JOKING, HAS TO BE REMINDED TO KEEP JOKES APPROPRIATE TO THE UNIT AND SITUATION. PT HAS TOLD THE [facility] THAT TOMORROW HE WILL NOT BE TALKING TO ANYONE. THIS AFTERNOON PT IS NO LONGER REPORTING ANY SI, PT STATES LAST SUICIDAL THOUGHT WAS LAST NIGHT, DESPITE ENDORSING SI EARLIER TODAY WELL.
[2024-05-15 19:52] VITALS: BP 104/72
[2024-05-15] MEDS ORDERED: OLANZapine 5 MG Tab PO SCH (21:00)
[2024-05-16 11:47] VITALS: BP 100/70
--- NOTE | 2024-05-16 11:50 | NUR ---
PT HAS BEEN SLEEPING ALL MORNING OFF AND ON, PT NOT SPEAKING HE WILL NOD YES OR SHAKE HIS HEAD NO, AND SHRUG SHOULDERS TO ANSWER YES/NO QUESTIONS. PT HAS BEEN OFFERED BREAKFAST AND LUNCH AND HE HAS REFUSED. HAVE OFFERED AM MEDICATIONS, PT SHAKES HIS HEAD NO AND DOES NOT WANT TO TAKE THEM, DISCUSSED RISKS OF NOT TAKING ANTISEIZURE MEDICATIONS AND PT SHRUGS. DISCUSSED WITH PT THE OPTION TO PASS WRITTEN NOTES SINCE HE HAS CHOSEN TO BE SILENT TODAY TO RESPECT THE LOSS OF HIS SO, PT NODS YES, INDICATING UNDERSTANDING.
--- NOTE | 2024-05-16 13:38 | NUR ---
AGAIN OFFERED MEDICAIONS, PT PASSES A NOTE TO THIS NURSE STATING FOR TODAY HE IS NOT TAKING ANY FOOD/FLUIDS OR MEDICATIONS TODAY TO REMEMBER HIS SO THAT .
--- NOTE | 2024-05-16 17:41 | NUR ---
Offered PT Breakfast, lunch, and dinner 3x for each tray and PT refused meals and drinks. carpentry supervisor notified
[2024-05-16 19:26] VITALS: BP 102/79
--- NOTE | 2024-05-16 21:57 | NUR ---
During nursing interview at approximately 1945, patient indicated to this marketing underwriter that he would refuse his PM medications this evening. Pharmacovigilance Safety Expert tried to explain the need for med compliance, especially for sz meds, but patient did not change his mind.
--- NOTE | 2024-05-17 06:17 | NUR ---
Patient is out of bed at 0615. He is more talkative, brighter, and interacting with staff. Pt stated that he is feeling much better after getting past the anniversary of his fiancee's and says he hopes to improve throughout the day. 1:1 LOS monitoring continues.
[2024-05-17 08:23] VITALS: BP 105/81
[2024-05-17] MEDS ORDERED: Ibuprofen 400 MG Tab PO PRN (15:45)
--- NOTE | 2024-05-17 16:54 | NUR ---
SHIFT SUMMARY PT AxOx4. PLEASANT AND COOPERATIVE WITH CARE. PT HAS BEEN UP AND ABOUT ON THE UNIT THIS SHIFT. HE HAS BEEN CHATTY AND SMILING OFTEN, WELL PARTICIPATING IN GROUPS. PT HAS BEEN COMPLIANT WITH MEDS AND FOLLOWING TX PLAN TODAY. STAUNTON SSRS COMPLETED AT 1700 WITH RESULT OF MODERATE SI RISK. PER NURSING JUDGEMENT AND DISCUSSION WITH PROVIDER, PT'S 1:1 LINE OF SITE REDUCED TO Q15 CHECKS PER UNIT PROTOCOL. PT IS CURRENTLY SITTING ON CHAIR IN HALLWAY MINGLING WITH PEERS AND STAFF. PT DENIES ANY NEEDS AT THIS TIME.
[2024-05-17 20:20] VITALS: BP 98/73
--- NOTE | 2024-05-18 02:30 | NUR ---
PT HAS BEEN RESTING QUIETLY WITHOUT COMPLAINTS. 15 MINUTE CHECKS CONTINUE THIS SHIFT. WILL CONTINUE TO MONITOR AND PROVIDE CARE FOR PT.
--- NOTE | 2024-05-18 04:23 | NUR ---
SHIFT SUMMARY PT A&OX4. PLEASANT AND COOPERATIVE WITH CARE. DENIES SI/HI, AVT HALLUCINATIONS OR ANY COMPLAINTS. PT IS CHATTY, SMILING AND COMMUNICATING WELL WITH STAFF AND PEERS ON THE UNIT. PT CONTINUES ON Q 15 MINUTE CHECKS AT THIS TIME. PT CURRENTLY SLEEPING AND HAS BEEN SINCE PRIOR TO MIDNIGHT. RESP EVEN AND UNLABORED. NO S/S DISTRESS. WILL CONT TO MONITOR AND PROVIDE CARE T/O SHIFT.
--- NOTE | 2024-05-18 09:50 | NUR ---
PT SLEPT IN, HAS NOT YET BEEN UP, REPOSITIONED SELF OCCASIONALLY, DR. POLK NOW IN TO EXAMINE PT.
[2024-05-18 12:31] VITALS: BP 100/70
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
--- NOTE | 2024-05-18 16:05 | NUR ---
Tessy attempted to contact Roxann (i.e. sister of pt) in order to schedule a family meeting, however, no one answered call. Tessy was unable to leave a message due to automatic message advising that a voice call has not been setup. Called was attempted at 1605pm.
[2024-05-18 19:22] VITALS: BP 97/68
--- NOTE | 2024-05-19 00:27 | NUR ---
PT IN BED ASLEEP WITH EYES CLOSED AND SNORING. A&OX4. FLIGHTS OF IDEAS. SOME PRESSURED SPEECH AT TIMES. ALSO SOME SLURRED WORDS AT TIMES. DENIES ANY SI OR HI. ALSO DENIES A/V/T/H. WILL CONTINUE TO MONITOR AND PROVIDE CARE T/O SHIFT.
--- NOTE | 2024-05-19 04:05 | NUR ---
SHIFT SUMMARY PT WATCHED TV AT START OF SHIFT WITH PEERS, HAD A SNACK AND MEDS, AND WROTE IN HIS JOURNAL. HE IS CURRENTLY SLEEPING WITH EYES CLOSED, SNORING. RESP EVEN AND UNLABORED WITH CHEST RISE AND FALL X 4. NO REPORTS OF ANY NEEDS OR COMPLAINTS AT THIS TIME. WILL CONTINUE TO MONITOR AND PROVIDE CARE T/O SHIFT.
--- NOTE | 2024-05-19 09:18 | NUR ---
PT SLEEPING THIS MORNING, REPOSITIONS SELF, BUT DOES NOT WAKE FOR BREAKFAST OR MORNING GROUP.
--- NOTE | 2024-05-19 12:22 | NUR ---
Bhupinder attempted to contact resoureces that would provide pt with a bilingual executive assistant in order to receive housing assistance support. Of these resources, bhupinder contacted [facility] by number [phone] from 1055am to 1100am and spoke with a A&D representataive who forwarded sw to a department where sw left a vm to be called back, [facility] by [phone] at 1100am and left a vm, AZIZA at 1108am and spoke with take off worker Shireen Mensah who advised taht [employer] does not provide support for obtaining a bilingual executive assistant, howevery, they do for renting, but currently, rental waitlist are 2 years and bhupinder attempted to contact Special Ed Assistant Beryl Hernández of [facility] at 1147am and left a vm.
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
[2024-05-19 17:33] VITALS: BP 104/78
[2024-05-19 20:05] VITALS: BP 105/81
[2024-05-20 08:15] VITALS: BP 100/78
[2024-05-20 19:53] VITALS: BP 119/83
--- NOTE | 2024-05-20 23:41 | NUR ---
PATIENT UP BEING SOCIAL WITH STAFF AND OTHER PATIENTS. HE IS COMPLIANT WITH HIS MEDICATIONS AND CARE. HE DENIES SI, VA AND AH. HE IS CONCERNED REGARDING HIS FUTURE PLANS. ACTIVE LISTENING GIVEN WITH SUPPORT. HE DID TAKE HIS SLEEPING MEDICATION AROUND 11PM. HE WAS ENCOURAGED TO GO REST AND TURN OFF STIMULUS. HE WAS COMPLIANT AND WENT TO BED.
[2024-05-21 08:32] VITALS: BP 100/75
--- NOTE | 2024-05-21 17:23 | NUR ---
SHIFT SUMMARY PT AxOx4. PLEASANT AND COOPERATIVE WITH CARE MOST OF THIS SHIFT. PT ENDORSED SI TODAY WITHOUT INTENT OR PLAN. HE WAS SEEN MINGLING AROUND THE UNIT, CHEERFUL AND CONVERSATING WITH PEERS/STAFF T/O THE DAY. PT PARTICIPATED IN GROUPS RECOMMENDED AND SPENT SOME TIME IN THE SENSORY ROOM. AT APPROX 1600, THE PATIENT HANDED THIS RN A HANDWRITTEN NOTE DETAILING HIS "LAST WILL AND TESTAMENT" AND REPORTED THAT HE JUST CAME OUT OF THE BATHROOM AFTER ASSESSING THE AREA TO DETERMINE IF HE COULD JUMP OFF THE SINK AND DIVE HEAD FIRST INTO THE TOILET IN ATTEMPT TO HARM OR "END HIMSELF." MASS SCORE =12. PRN'S ADMINISTERED. PT DENIES RELIEF. PROVIDER AWARE AND IN TO VISIT PATIENT. PATIENT DECLINED DINNER THIS EVENING. PT ASKING IF HE IS GETTING A SITTER TONIGHT. AT THIS TIME, PT IS STILL APPROPRIATE FOR MONITORING FOR MODERATE SI- Q15 CHECKS, PER UNIT PROTOCOL. PT IS CURRENTLY SITTING IN HALLWAY IN CHAIR WITH RELAXED POSTURE. PT MAKING SMALL TALK HERE AND THERE INCLUDING JOKES AND CHUCKLING.
[2024-05-21 20:36] VITALS: BP 104/73
[2024-05-21 21:58] VITALS: BP 131/76
--- NOTE | 2024-05-22 00:43 | NUR ---
ONGOING 15 MINUTE CHECKS. PT IS IN BED WITH EYES CLOSED SNORING AT THIS TIME. BEFORE BED PT EXPRESSED TO ME THAT HE WAS GOING TO TRY TO JUMP OFF THE SINK IN HIS BATHROOM AND SMASH HIS HEAD ON THE FLOOR EARLIER IN THE DAY. SAW PT AFTER THIS REPORTED INCIDENT TODAY. NO NEW ORDERS FOR A 1:1 GIVEN.
--- NOTE | 2024-05-22 03:55 | NUR ---
SHIFT SUMMARY PT A&OX4. SLOW SPEECH THIS EVENING. HE WAS SHAKY AND STATED HE HADN'T EATEN MUCH TODAY. HE ATE SEVERAL SNACKS AND BEVERAGES AND HE STOPPED SHAKING WHILE HE WAS EATING. PT WAS OUT IN [place] WITH PEERS PLAYING CARDS AND CONVERSING PART OF THE TIME. HE HAS BEEN IN BED SINCE ABOUT 2300 RESTING QUIETLY WITHOUT COMPLAINTS. WILL CONTINUE TO MONITOR FOR CHANGES AND PROVIDE CARE T/O SHIFT.
[2024-05-22 09:17] VITALS: BP 94/70
--- NOTE | 2024-05-22 17:32 | NUR ---
Pt is A&O, appearance is disheveled, speech is slow. Pt mood is depressed, affect is constricted and congurent to report. Pt endorsed suicidal thoughts "in the back of my head trying to move forward," but promised to contact if he developed urges to harm himself. Pt denies HI and AVH. He reported pain in his back 6/10W, but did not request any PRN meds. Pt did take his scheduled meds this morning. He remained in bed all day and refused all meals. Pt has fluids bedside.
[2024-05-22 19:59] VITALS: BP 98/71
--- NOTE | 2024-05-22 21:00 | NUR ---
Patient out in milieu at change of shift. very flat affect avoiding eye contact. tried to talk to patient about what was going on with him today, and he just stated "I'm worthless". Asked him what we could do for him to help him, and he stated nothing "it will be over soon". Refused all meds, fluids and nutrition offered. He did agree to take his zyprexa, but no phenobarb, or any other medications. Then after approx 30 minutes he took 2mg ativan. At approximately 2044, the patient was found up on his bathroom purched and ready to fall off onto the floor. Staff talked him down and patient currently sitting in TV room 1:1 with toolroom attendant. Call placed to MD. Awaiting return call. will continue constant monitoring at this time
--- NOTE | 2024-05-22 21:41 | NUR ---
CN NOTIFIED VIA [facility] (ELMER) THAT THERE WAS AN IMMEDIATE NEED IN PATIENTS BATHROOM. UPON ENTRY TO ROOM 601 RESTROOM, I FIND PATIENT STANDING ON TOP OF HIS SINK THREATENING TO JUMP. MHA (ARAM) WAS ALREADY IN PATIENTS BATHROOM TALKING WITH HIM IN A SENSITIVE, CALM MANNER ENCOURAGING HIM TO STEP DOWN OFF THE SINK. CN HAS CALM CONVERSATION WITH ACTIVE LISTENING REGARDING PATIENTS CONCERNS OF WANTING TO "END IT ALL". FENG HAS BEEN ESCULATING IN HIS NEED FOR ATTENTION HIS DISCHARGE GROWS CLOSER. CN INSTRUCTED (A) ELMER TO REMOVE MATTRESS FROM [facility]RADE BED AND PLACE IT ON THE FLOOR JUST BELOW THE SINK TO REDUCE POSSIBLE INJURY TO PATIENT AND STAFF IF FENG DECIDED TO ACULY JUMP. CN AND MHA (ARAM) WERE ABLE TO CONVINCE FENG TO SAFELY STEP DOWN AND HE WAS COMPLIANT WITH COMANDS. DR. DICKENS WAS CONTACTED FOR ORDERS OF A 1:1 TO INSURE CONTINUED SAFETY. PATIENT WAS COMPLIANT WITH TAKING ATIVAN = 2MG PER ORDERS. PATIENT IS COMPLIANT WITH STAFF CURRENTLY AND IS MORE ENGAGE WITH STAFF AND OTHER PATIENTS. WE WILL CONINUE TO MONITOR 1:1 WITH IN LINE OF SIGHT THROUGH OUT PM SHIFT.
--- NOTE | 2024-05-22 21:54 | NUR ---
Patient beginning to relax in TV room with sitter and 2 other patients. Still unwilling to take other medications. will offer when patient goes to bed.
--- NOTE | 2024-05-22 23:37 | NUR ---
Patient still sitting up in TV room with sitter. Very groggy. eyes closed, but refusing to go to bed at this time. will work with sitter to get him to bed within next 15 minutes and into paper scrubs for sleep.
--- NOTE | 2024-05-23 04:03 | NUR ---
Patient has been on 1:1 line of sight sitter since before 2400. Refused all meds except Zyprexa and PRN ativan. Dressed in paper scrubs and assisted to bed after climbing on sink with intention of jumping off. Multiple staff in bathroom with patient. They were able to physically help him off of sink, and one on one sitter assigned. roller embosser was able to talk patient into laying down and resting quietly and he fell asleep shortly after that. Continually monitoring. MD aware of line of sight
[2024-05-23 09:19] VITALS: BP 80/55
--- NOTE | 2024-05-23 10:50 | NUR ---
ASSUMMED PT CARE @0715. PT LYING IN BED RESTING EYES CLOSED. PT EASILY ROUSED FOR MORNING MED PASS. PT INITIALLY REFUSED MEDS. PT EDUCATED THAT MORNING MEDS ARE HIS FLOMAX AND ANTISEIZURE MEDICATIONS. PT GENTLY REMINDED THAT VOLUNTARY ADMISSION IN U REQUIRES PATIENT BE COMPLIANT AND PARTICIPATE IN PLAN OF CARE. HE THEN TOOK HIS MEDS BUT REPORTS TO THIS RN THAT "THEY AREN'T WORKING" AND "HES NOT WORTH IT" WHEN ASKED ABOUT SI HE REPORTED" ABSOLUTELY NOT" BUT THEN REPORTED THAT HE IS STILL WANTS TO HARM HIMSELF PT THEN PUT COVERS OVER HIS HEAD AND DECLINED TO ANSWER ANY MORE ASSESSMENT QUESTIONS. PT DECLINED BREAKFAST AND MILIUE PARTICIPATION THIS MORNING. THIS RN ENCOURAGED PT TO SET GOAL OF A SHOWER TODAY. HE DENIES ANY NEEDS AT THIS TIME
--- NOTE | 2024-05-23 14:50 | NUR ---
PT INTERVENTION WITH DIRECTOR HETAL. [facility] RIGHTS AND RESPONSIBILITIES REVIEWED. PT ENCOURAGED TO BE COMPLIANT WITH MEDICATIONS, UP FOR MEALS AND PERSONAL CARE. PT RELUCTANT BUT DID AGREE TO SHOWER. HE HAS BEEN UP TO DINNING ROOM, AND PATIO. HE DOES ENDORSE SI AND IS CURRENTLY ON A 1:1
--- NOTE | 2024-05-23 18:13 | NUR ---
SHIFT SUMMARY PT AA&OX4. PT HAS BEEN SOLEMN AND DECLINING PARTICIPATION WITH POC. AFFECT IS FLAT. PT DID GET UP TO SHOWER THEN A SNACK AFTER REVIEWING RIGHTS AND RESPONSIBILITIES. WITH GENTLE ENCOURAGEMENT HE WAS UP FOR DINNER. HE WAS COMPLIANT WITH MEDICATIONS. HE HAS BEEN IN HIS ROOM IN BED MOST OF THE DAY. HE ENDORSES SI AND IS N A 1:1.
--- NOTE | 2024-05-23 19:36 | NUR ---
Patient currently laying in bed with covers over his head. Sitter in doorway monitoring. Patient did not answer me when i first approached him. He just moved in the bed and pulled his covers higher over his head. Will reapproach and re evaluate frequently. Will explain that with voluntary entrance to the unit, he must cooperate in his care and in the milieu.
--- NOTE | 2024-05-23 21:18 | NUR ---
Patient got call from family member (haley Haley) and they spoke for a significant amount of time. When Rishabh came out of his room, his demeanor was happy. He was participating with a group in the muller playing ball and his posture was erect instead of slouched. Eye contact was improved as well
[2024-05-23 21:24] VITALS: BP 102/76
--- NOTE | 2024-05-24 00:29 | NUR ---
sitting up cross legged on side of bed. very flat affect, stated not tired. Sitter watching in doorway
--- NOTE | 2024-05-24 04:29 | NUR ---
Overall, spent his evening participating in the milieu conversing with his peers. He did take all of his HS medications, and drank three bottles of water with a snack after dinner. He acted quite despondent when told at 2300 that it was time to go to bed, but he quickly layed down and went to sleep within twenty minutes. Total sleep time so far 5.5 hours. No talk of a SI,suicide plan, HI or AVH. will continue close monitoring
[2024-05-24 08:15] VITALS: BP 106/82
--- NOTE | 2024-05-24 09:06 | NUR ---
PT ENDORSED SI WITHOUT A PLAN. PT IS NOT CONSIDERED AN IMMINENT RISK AT THIS TIME. VERBAL ORDER RECIEVED FROM DR. DICKENS TO DC 1:1 PER [facility] POLICY
[2024-05-24 16:52] VITALS: BP 106/82
--- NOTE | 2024-05-24 17:15 | NUR ---
SHIFT SUMARRY PT AA&OX4. HE IS CALM AND COOPERATIVE WITH CARE. PT UP TO BREAKFAST AND PARTICIPATING WITH MILIEU. PT REPORTS SI WITHOUT PLAN. HE WAS ABLE TO REPORT TO THIS RN THAT HE WOULD NOT ATTEMPT SELF HARM AT THIS TIME. 1:1 DC'd. PT ATE ALL MEALS AND WAS COMPLIANT WITH ALL CARE. PT HAD INTERVIEW WITH JESSICA CODY. HE APPEARED TO BE IN [employer] SMILING AND REPORTS THAT HE "HAS HOPE" PT DENIES ANY NEEDS AT THIS TIME WILL CONTINUE WITH POC UNTIL POC SHIFT REPORT
[2024-05-24] MEDS ORDERED: Polyethylene Glycol 3350 17 gm PO ONE ×2 (18:20→21:00)
--- NOTE | 2024-05-24 20:00 | NUR ---
NURSE ASSESSMENT PT ENGAGING IN GROUP ACTIVITY OF JOSE DANIEL. PT MADE RN AWARE OF HAIRCUT TODAY. SMILING AND LAUGHING WITH GROUP PARTICIPANTS. PT VERY TALKATIVE WITH STAFF AND OTHER PATIENTS, TELLING STORIES. PT DENIES SI AT THIS TIME AND HOPEFUL OF INTAKE TO JESSICA. PT REQUESTING MEDS CLOSER TO BEDTIME BUT WOULD LIKE MIRLAX NOW. PT REPORTS SEVERAL DAYS OF NO BM.
[2024-05-24 20:52] VITALS: BP 98/73
[2024-05-25] MEDS ORDERED: Polyethylene Glycol 3350 17 gm PO SCH (09:00)
--- NOTE | 2024-05-25 10:13 | NUR ---
PT ESCALATED IN DINING BRONSON. PT WALKED LOUDLY TO HER ROOM YELLING THAT SHE "NEEDED TO CLEAN MY BATHROOM, BECAUSE ITS FUCKING DISGUSTING" AND THAT "SOMEONE HAS BEEN SHITING IN MY FUCKING BATHROOM, WE HAVEN'T POOPED SINCE I'VE BEEN HERE" SHE ALSO SHOUTED THAT "THE FUCKING TOILET PAPER IS FUCKING BROWN, WE'VE NEVER SEEN FUCKING BROWN TOILET PAPER" SHE ALSO REPORTED THAT CARLOS VANESSA "IS TRYING TO KILL US, SHE HASN'T TAKEN VITALS IN THREE FUCKING DAYS AND SHE JUST SITS THERE SMILING" WHEN ASKED WHO "WE" WAS SHE REPLIED"ME CESAR" PT WAS ABLE TO DESCALATE WHEN OFFERED PRN MEDICATION. JEREMY GONZALEZ STAYED WITH PT AND REPORT GIVEN TO PRIMARY RN SISSY WHO TOOK OVER CARE
[2024-05-25 19:25] VITALS: BP 101/72
--- NOTE | 2024-05-25 19:27 | NUR ---
SHIFT SUMMARY PT AA&OX4. CALM AND COOPERATIVE WITH CARE. SPEECH AND EYE CONTACT APPROPRIATE. PT REPORTS MOOD IS "BETTER TODAY" PT DENIES SI. PT HAS BEEN COMPIANT WITH MEDICATIONS. PT UP TO SHOWER, MEALS, AND GROUP. HE DENIES ANY NEEDS
--- NOTE | 2024-05-26 04:32 | NUR ---
Rishabh had a good night. Out socializing in the milieu. Up watching comedy show until about 2300. Pleasant and cooperative with medications. Sleep hours to this time 5.5. (still sleeping) Mo SI,HI or AVH noted.
[2024-05-26 09:47] VITALS: BP 107/82
--- NOTE | 2024-05-26 16:24 | NUR ---
SHIFT SUMMARY PT MET WITH COMMUNITY PILOT PLANT OPERATOR HELPER TO DETERMINE OFFSET PRESSMAN CARE. PT IN A GOOD MOOD AND ATTENDED GROUPS, WAS VERY ACTIVE IN THE PT MILIEU. HE DENIED SI, HI, AVH AND ANXIETY. PT COOPERATIVE WITH CARE. HE REPORTED A HEADACHE OF 3/10w AND WAS GIVEN IBUPROFEN 800MG AT 8:14 WHICH HE REPORTED WAS SUCCESSFUL AT REDUCING HIS PAIN TO 0/10w. HE IS PRESENTLY WATCHING A MOVIE WITH PEERS.
[2024-05-26 20:55] VITALS: BP 106/71
--- NOTE | 2024-05-27 00:09 | NUR ---
PATIENT WAS AT THE NURSING DESK AREA CHATTING WITH HIS RN. HE WAS NOTED TO BE MAKING INAPPROPRIATE SEXUAL COMMENTS TO AND REGARDING SELECT FEMALE MHA. WHEN REDIRECTED, HE WOULD FOLLOW REDIRECTION, BUT WOULD GO BACK TO HIS INAPPROPRIATE COMMENTS.
--- NOTE | 2024-05-27 06:03 | NUR ---
PATIENT WOKE UP BREIFLY THIS AM REQUSTING TOILET PAPER. SHE DID GO BACK SLEEP AFTER TOILETING.
--- NOTE | 2024-05-27 08:41 | NUR ---
ATTEMPTED TO WAKE PT UP FOR BREAKFAST, HE ROUSED AND CHANGED POSITION, BUT DID NOT GET OUT OF BED, PT STILL APPEARS TO BE SLEEPING.
--- NOTE | 2024-05-27 08:45 | NUR ---
On 05/26/2024 from approximately 1306pm to 1319pm Sw and pt were in a meeting with [facility] [employer] worker Rachel Webster. Rachel advised that she will support pt in searching for a AFH. aRchel advised that tat of AFH placement could not be advised because it depends on placement availability, however, with pt being open to live within any [facility], placement may be done soon and that [facility] will support pt with transportation needs to get to an AFH after U discharge. Pt expressed during meeting that he would like [facility] staff to contact friend Javi Haley and sister on TABBY in order for one of them to bring his debit card, cellphone, play station, clothes and suitcase. Sw will attempt to contact family on pt behave for belongings.
--- NOTE | 2024-05-27 09:10 | NUR ---
CLC [employer] CONTACT INFORMATION::::::::::::::::::::::::::::::::::::: Rachel Webster phone: [phone] ext [phone] Email: [email or web address]
[2024-05-27 11:45] VITALS: BP 108/74
--- NOTE | 2024-05-27 16:24 | NUR ---
PT IS LAUGHING AND JOKING WITH STAFF AND PEERS, HAS BEEN PARTICIPATING IN FORMAL AND INFORMAL GROUPS AND GAMES, NOW WATCHING TV. WHEN CHECKING IN WITH PT HE REPORTS WHEN ASKED ABOUT HIS MOOD, "IF I'M GOING TO BE COMPLETELY HONEST IT'S GOING DOWN," HE STATES IN THE AFTERNOON AND EVENINGS HE STATES HIS MOOD HAS BEEN "GOING DOWN," WHEREAS THIS MORNING HE WAS HOPEFUL AND MORE UPBEAT ABOUT HIS HOUSING AND SITUATION AFTER DISCHARGE.
[2024-05-27 19:50] VITALS: BP 108/75
--- NOTE | 2024-05-28 15:11 | NUR ---
DOWNTIME UTILIZED 05/28/24 AM SHIFT, SEE PAPER FORMS PT SLEEPING UNTIL 1030, TOOK MEDS AROUND 1050 AND JOINED GROUPS, HE HAS EATEN MEALS AND PARTICIPATED IN THERAPY AND GROUP ACTIVITIES, PT IN CONVERSIVE, LAUGHING AND JOKING WITH PEERS AND STAFF. PT CURRENTLY SITTING IN THE DINING ROOM WITH STAFF AND PATIENTS PLAYING JOSE DANIEL AND DOING WORD SEARCH ACTIVITIES, NO SI ENDORSEMENT.
--- NOTE | 2024-05-28 18:09 | NUR ---
PT SISTER ARRIVED AND HAS A SUITCASE WITH BELONGINGS, SHE PLACED BELONGINGS IN PLASTIC TOTE, WHEN I LET HER KNOW THEY WOULD BE LOCKED AND STORED IN THE CLOSET SHE DID NOT PLACE HIS LISSETTE SYSTEM, HEADPHONES, PHONE OR DEBIT CARD IN THE TOTE, SHE ONLY LEFT CLOTHING ITEMS. ITEMS LOCKED IN TOTE WITH PT NAME, CABLE LOCK 533808, PT NOTIFIED WELL.
[2024-05-28 20:35] VITALS: BP 109/78
[2024-05-29 10:33] VITALS: BP 109/80
--- NOTE | 2024-05-29 14:51 | NUR ---
PT REPORTS ULCER PT MEDICATED PER EMAR W/ ADVIL FOR HEADACHE. AFTER TAKING MEDS I ENCOURAGED PT TO FOLLOW W/ DRINK TO PREVENT ESOPHAGUS ISSUES AND PT INFORMS THIS NURSE OF ULCER AND POINTS TO L SIDE OF ABD. INFORMED PT THAT POSSIBLE NEED TO CHANGE MEDS FROM IBU TO TYLENOL.
--- NOTE | 2024-05-29 18:01 | NUR ---
SHIFT SUMMARY PT A&OX4, REPORTING SOME SI WHILE ALONE AND DEPRESSION. PT REPORTS HISTORY OF HAVING DIFFICULTY W/ LEFT ARM AND UNABLE TO MOVE IT WITH CURRENT EPISODE. WHEN PT RETURNS TO NURSE STATION, HE IS HOLDING COFFEE USING AFFECTED ARM AND HAS FORGOTTEN ABOUT EARLIER DIFFICULTY. PT PARTICIPATED IN MOVIES TODAY. PT EDUCATION R/T POSITIVE THINKING CONTINUED.
[2024-05-29 19:36] VITALS: BP 111/94
--- NOTE | 2024-05-30 07:59 | NUR ---
AWAKE EARLY, EATING BREAKFAST, MORNING MEDICATIONS GIVEN AT THIS TIME. DECLINES MIRALAX.
[2024-05-30 08:22] VITALS: BP 110/87
--- NOTE | 2024-05-30 08:44 | NUR ---
PT IS ENGAGED AND SMILING WHEN TALKING WITH MHA'S AND OTHER PATIENTS, WHEN TALKING TO PT ABOUT HIS MOOD AND OUTLOOK, HE LOOKS DOWN AND STATES IT'S "NOT GOOD," REPORTS HE STILL HAS SI, NOT IMMEDIATE BUT AFTER HE IS DISCHARGED. WE DISCUSSED HIS "HOMEWORK" OF TURNING NEGATIVES INTO POSITIVES HE IS ENCOURAGED TO WRITE THESE DOWN IN A JOURNAL TO PRACTICE, REPORTS NEGATIVE SELF TALK. ALSO DISCUSSED GOALS FOR TODAY, PT REPORTS HE HAS NONE AND WILL MAKE THEM FOR TOMORROW, DISCUSSED MAKING SHORT TERM GOALS FOR TODAY IN REGARDS TO SELF CARE/PERSONAL CARE, GAVE THE EXAMPLE OF TAKING A SHOWER OR DRINKING WATER. PT ENCOURAGED TO WORK ON THIS TODAY, HE STATES OK, BUT AVOIDS ANY EYE CONTACT.
[2024-05-30] MEDS ORDERED: Aluminum Hydroxide 320MG/5ML 473 ML PO PRN (12:20)
[2024-05-30 19:57] VITALS: BP 107/82
--- NOTE | 2024-05-30 21:11 | NUR ---
PRN MAALOX EQUIVALENT GIVEN AT 2100 FOR HEARTBURN, PER PATIENT REQUEST.
[2024-05-31 08:04] VITALS: BP 112/85
--- NOTE | 2024-05-31 08:55 | NUR ---
Sw attempted to contact Rachel Webster of [facility] at [phone] in order to get an update regarding placement possibilities for AF at 0853am. Tessy will attempt to reach Rachel Webster at another time.
--- NOTE | 2024-05-31 11:04 | NUR ---
Attempted to call CLCM Rachel , went to [employer]. Looks like she is out of office. Being directed to a Tyler Merino who is taking calls. Tyler is touching base with the person in charge of this process and will get back to me. Pt was evaluated last week by Dre Torres. I spoke with Corina Good. the Ram Car Operator of the facility on this patients behalf. They still have a bed available if [facility] is able to help support looking into Insurance payee information they would be happy to collaborate. We will hear back from Tyler or Rachel by the end of the day.
--- NOTE | 2024-05-31 13:22 | NUR ---
Reached out to follow up to let RAFITA Desai Docket Specialist know that our Drum Sealer is out of office at 430 and to reach out by then to give us an update
--- NOTE | 2024-05-31 15:55 | NUR ---
Sw received a return call from Rachel Webster of [facility] regarding scheduling an appt for possible AFH placement for pt with [facility]. The meeting is scheduled for 06/01/2024 at 0830am via zoom.
--- NOTE | 2024-05-31 18:30 | NUR ---
PT HAS BEEN INTERACTING WITH PEERS AND STAFF TODAY, INCONGRUENT WITH HIS EARLIER STATEMENT OF FEELING MELANCHOLY AND DEPRESSED. HE HAS BEEN IN THE PT MILIEU ALL DAY.
[2024-05-31 19:17] VITALS: BP 114/77
--- NOTE | 2024-06-01 05:07 | NUR ---
Pt A&O x4, calm, cooperative, good eye contact. Pt reports mood as "depressed, anxious," affect is euthymic and not congruent to reported mood. Pt denies HI and AVH. With regards to SI pt stated that "tomorrow is make or break" and that if he cannot find placement that he would give away his cat and belongings, "then jump." He would not further elaborate. Pt denied anxiety, even after reporting his mood as anxious. Pt is med compliant, no PRNs given. Pt spent the evening watching TV with peers.
[2024-06-01 08:19] VITALS: BP 105/84
--- NOTE | 2024-06-01 18:14 | NUR ---
SHIFT SUMMARY PT A/O X4; PLEASANT AND COOPERATIVE WITH CARE. PT REPORTS THAT HIS MOOD IS "BETTER" TODAY. HE HAD A MEETING TODAY REGARDING POSSIBLE PLACEMENT UPON DISCHARGE. CLCM IS HELPING TO [facility]. PT DENIES SI, HI, AH, VH, TH WHEN ASKED BY THIS RN. PT APPEARS JOYFUL AND PARTICIPATES IN GROUP ACTIVITIES/MEALS. HOWEVER, PT REPORTS THAT HE IS DEPRESSED BUT REPORTS THAT DEPRESSION IS "A LITTLE BETTER" TODAY. NO PRN'S GIVEN THIS SHIFT.
[2024-06-01 19:28] VITALS: BP 110/78
--- NOTE | 2024-06-02 05:05 | NUR ---
A&O x4, calm, cooperative, good eye contact. Pt describes his mood as "good," affect is euthymic. Pt denies SI, HI, and AVH. He stated that his anxiety was "high" RT his new housing situation. Pt denied current pain. Pt is concerned about having a possible ulcer and asked about treatmet. Mold Hoister explained medication options for treating ulcers. Pt spent the evening watching TV with peers. Pt received PRN aluminum hydroxide for GERD at 1904 and quetiapine for restlessness at 2230. He appeared to sleep all night.
[2024-06-02 08:26] VITALS: BP 100/71
--- NOTE | 2024-06-02 09:07 | NUR ---
PT UP EARLY, ATE BREAKFAST, COMPLIANT WITH MEDICATIONS, BUT DENIED MIRALAX. PT NOW PARTICIPATING IN MORNING MOVEMENT GROUP WITH OT. PT REPORTS STILL FEELING "ANXIOUS," BUT "BETTER" THAN A FEW DAYS AGO. DENIES ANY CURRENT SI/HI AND CONTINUES TO DENY ANY AH/VH/TH.
--- NOTE | 2024-06-02 13:42 | NUR ---
PT BECAME ANXIOUS WHEN SHOWERING, CO FEELING RHR, INCREASED RATE OF BREATHING, DISCUSSED BREATHING EXERCISES AND GROUNDING TECHNIQUES, PT CALMED DOWN AFTER SOME TIME, WENT INTO THE SENSORY ROOM, IS RESTING AND FEELING IMPROVED AT THIS TIME, HOWEVER HE DECLINED TO GO TO THE LAST GROUP.
--- NOTE | 2024-06-02 14:30 | NUR ---
On 06/01/2024 at 0815am to approximately 0840am bhupinder participated in pt meeting with Rachel Webster of [facility], pt and [facility] for placement oppurtunities via zoom/in-person (i.e. [facility] staff participated via zoom). Per [facility] staff they will update and TANVI Friday, regarding if placement is an option for pt. After meeting, advised that pt will partake in another [facility] meeting at 0900am same day. emailed bhupinder regarding documentation needed for AFH placement. Bhupinder forwarded documentation requirements of [facility] to psychiatrist for further review.
[2024-06-02] MEDS ORDERED: Acetaminophen 325 MG TABLET PO PRN (18:05)
--- NOTE | 2024-06-03 11:18 | NUR ---
[facility] Placement Update Recieved update from [facility] Rachel Webster via email, She stated she is uncertain if patient will be able to transfer to either placement option friday. However, she did hear that [facility] home is very interested and asked that we mention that to patient and report back to her on his decision between the first eval or the second eval. I let her know we would be in touch with his answer. rachel webster also asked where we were with getting balance test and documents she provided to on Friday. I let her know I would follow up with and would touch base with her.
--- NOTE | 2024-06-03 11:54 | NUR ---
[facility] Placement Information Update I spoke with patient about which placement he preferred. PT stated " I liked the first one but will go with whoever wants to accept me 1000%" I let him know I would pass that along to his leather case finisher, Rachel Webster and his SW . I also found out that [facility] terminated his care back in March and had sister signed up to be payee. I informed case management. Due to him being terminated they [place].
[2024-06-03 12:10] VITALS: BP 115/79
--- NOTE | 2024-06-03 12:59 | NUR ---
Potential Placement Update CLCM RAFITA Webster, will be coming to help support pt with discharge and is communicating with [facility] the agency that is interested in placement to see how quickly he can enter placement. She will let us know, However, RAFITA understands patient will be discharged tomorrow. Will update as information is recieved.
--- NOTE | 2024-06-03 13:09 | NUR ---
CLCM Placement Update Patients Support Team [facility]oc will be on site at 8:45 am and has 2 appointments scheduled with CLCM with placements at 9 and 930am.
--- NOTE | 2024-06-03 13:37 | NUR ---
[facility] Placement UPDATE Patients Balance test was signed my provider to send over to [facility] to get to [facility] via email at [phone].
[2024-06-03] MEDS ORDERED: Simethicone 80 MG Chew PO ONE (15:40)
--- NOTE | 2024-06-03 23:25 | NUR ---
PATIENT TELLS ME HE IS ANXIOUS ABOUT DISCHARGE ON FRIDAY. HE DID REQUEST A PRN SEREQUIL AND THIS WAS GIVEN WITH GOOD RESULTS. HE IS COMPLIANT WITH ASSESSMENT, CARE AND NEDICATIONS. HE DENIES ANY AH, VH AND SI.
--- NOTE | 2024-06-04 05:50 | NUR ---
PATIENT SLEPT WELL THROUGH OUT THE NIGHT. NO NOTED BEHAVIORS OR ISSUES. POSSIBLE APPROPRIATE DISCHARGE LATER TODAY.
[2024-06-04 08:32] VITALS: BP 122/86
--- NOTE | 2024-06-04 12:04 | NUR ---
Bhupinder participated in a [facility] review meeting with pt CLCM laborer powerhouse Jessica Webster and [facility] staff. Per [facility] staff worker Eduard Tobin, pt will be able to live in the [facility] and onboarding is scheduled for 06/10/2024. Jessica Webster will support pt in locating transporation to [facility], as bhupinder advised that pt is scheduled to discharge from [facility] 06/04/2024. Pt, bhupinder and agreed that pt will go to the [place] after discharge so that pt will have the ability to contact Darin by phone as needed. agreed to support pt in finding a new payee. Onboarding for [facility] cost $733. Pt verbalized he has enough funds to cover [facility] onboarding. Crista advised that the facility will need pt OHP information. Pt completed TABBY for [facility] to receive OHP information.
--- NOTE | 2024-06-04 18:26 | NUR ---
DISCHARGE SUMMARY: PATIENT DISCHRAGED HOME WITH SISTER. DISCUSSED DISCHARGE INSTRUCTIONS, MEDICATIONS, FOLLOW UP AND EDUCATION. PATIENT STATED UNDERSTANDING AND DENIED QUESTIONS.
--- NOTE | 2024-06-04 18:57 | NUR ---
PT confirmed all belongings were in his possession upon discharge from [facility] EXCEPT his [employer] BIKE leaving at [facility] until he has big enough car to transport home.
== END 2024-06-04 18:35 | disposition home or self-care (01) | DRG 885 ==
LOC: BHU 18:35
PROVIDERS: ADMIT Psychiatry & Neurology Psychiatry
DX: F31.81 Bipolar II disorder (principal); Z91.011 Allergy to milk products; Z91.018 Allergy to other foods; Z88.8 Allergy status to other drugs, medicaments and biological substances; Z79.899 Other long term (current) drug therapy; G40.909 Epilepsy, unspecified, not intractable, without status epilepticus; K58.9 Irritable bowel syndrome, unspecified; M54.50 Low back pain, unspecified; H93.12 Tinnitus, left ear
CPT/HCPCS: 82947; A9270